=== PATIENT | male | born 1995 | race Caucasian/White ===

== ENCOUNTER 2025-03-28 20:11 | Emergency (ER) | payer OTHER, SELFPAY ==
[2025-03-28] VITALS (14 sets, daily range): BP systolic 112–135; BP diastolic 78–84; PULSE 62–77; TEMP 36.6; O2SAT 95–99; BMI 35.1
--- NOTE | 2025-03-28 20:47 | ECG_ITS ---
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 Measurements Intervals [place] Rate: 70 P: 45 CO: 166 QRS: 85 QRSD: 76 T: 55 QT: 356 QTc: 377 Interpretive Statements 1100 Sinus rhythm 1102 Sinus arrhythmia 9110 normal ECG No previous ECG available for comparison Electronically Signed On 03-29-2025 19:54:20 EDT by BALDOMERO TORRES M.D.
--- NOTE | 2025-03-28 20:49 | ED.GENADUL1 ---
HPI HPI - General Adult General Chief complaint: Dizziness Stated complaint: DIZZY, BLURRED VISION, MUSCLES FEEL TIGHT Time Seen by Provider: 03/28/25 20:13 Source: patient Mode of arrival: walk-in Limitations: no limitations History of Present Illness HPI narrative: Patient is a 29-year-old male that presents to the emergency department with complaints of 5 days of dizziness that is usually followed by headache and sometimes a few minutes of bilateral hand tingling. He has also been getting some intermittent calf cramping he notes that he recently started a job where the temperature is extremely high and he has been sweating like crazy. He has been drinking a lot of liquid IVs but states he still feels dehydrated. He notes that about a year ago he had similar symptoms and his potassium was low. He had to get it replaced in the emergency department. He does not have a PCP and did not follow-up after this and does not like to see doctors. He denies any trauma, medical history, or starting any new medications. He denies any chest pain, shortness of breath, or abdominal pain. Related Data Home Medications ?Medication ?Instructions ?Recorded ?Confirmed No Known Home Medications 03/28/25 03/28/25 Allergies Allergy/AdvReac Type Severity Reaction Status Date / Time No Known Drug Allergies Allergy Verified 03/28/25 20:25 Review of Systems ROS Status of ROS 10 or more systems reviewed and unremarkable except as noted in history and below Exam Narrative Exam Narrative: General: No distress, age-appropriate Skin: Warm, dry, no pallor. No rash. Head: Normocephalic, atraumatic. Neck: Supple, non-tender. Eye: Pupils are equal, round and EOMI. No scleral icterus. Ears, Nose, Mouth, and Throat: No nasal mucosal hypertrophy. Oral mucosa is moist, no posterior oropharynx erythema, uvula is mid-line Cardiovascular: Regular Rate and Rhythm without murmur, gallop or rub. Respiratory: No accessory muscle use or respiratory distress. Lungs are clear to auscultation, no wheezing, rales or rhonchi Chest Wall: no tenderness Back: No midline thoracic or lumbar vertebral tenderness. Musculoskeletal: Full ROM of all extremities, no calf or popliteal tenderness GI: Abdomen is soft, non-distended, non tender to palpation. No masses appreciated. No rebound, guarding, or rigidity noted. Neurological: A&O x4. No cranial nerve dysfunction observed. No truncal ataxia. Moves all extremities. Sensation intact. Psychiatric: Cooperative and interactive. Normal mood and affect. Constitutional Vital Signs, click to edit/add: Last Vital Signs Temp 97.8 F 03/28/25 20:23 Pulse 66 03/28/25 22:40 Resp 15 03/28/25 22:40 BP 112/78 03/28/25 22:30 Pulse Ox 99 03/28/25 22:40 Documenting provider has reviewed patient's vital signs: yes Course Vital Signs Vital signs: Vital Signs Temperature 97.8 F 03/28/25 20:23 Pulse Rate 71 03/28/25 20:23 Respiratory Rate 18 03/28/25 20:23 Blood Pressure 135/84 03/28/25 20:23 Pulse Oximetry 99 03/28/25 20:23 Temperature 97.8 F 03/28/25 20:23 Pulse Rate 66 03/28/25 22:40 Respiratory Rate 15 03/28/25 22:40 Blood Pressure 112/78 03/28/25 22:30 Pulse Oximetry 99 03/28/25 22:40 Medical Decision Making MDM Narrative Medical decision making narrative: This is a 29-year-old male that presented to the emergency department with about 5 days of intermittent dizziness, headache, episodes of bilateral hand tingling, and leg cramping after starting a new job the day prior to onset of symptoms. This job involves working in extreme temperatures where he does sweat a lot. He has been trying to drink electrolyte drinks but still feels he is dehydrated and cannot keep up . About a year ago he states he presented to the ER with similar symptoms and his potassium was low and he needed replacement. He does not have a PCP and does not follow with a doctor. On arrival patient is in no distress, appears comfortable on ED cart sitting up. His only complaint currently is mild headache. There are no neurological deficits on exam. He is GCS 15. Vitals are hemodynamically stable, patient is afebrile 97.8. O2 saturation is 99% on room air. IV was placed and 1 L normal saline ordered. CBC, BMP ordered. EKG on arrival was reviewed and noted to be in sinus rhythm, no ST elevation, no ischemic changes. Labs, CBC and BMP unremarkable. K is 4.0 At this time, patient appears to have mild dehydration and symptoms consistent with functional effects of prior or intermittent electrolyte disturbance, exacerbated by heat exposure and volume loss. Labs are reassuring with no acute pathology. Symptoms improved with IV fluids in ED. No acute intervention required. Patient updated with testing and lab results. Return precautions discussed and also placed in discharge instructions. Patient was discharged to home and I did discuss establishing care with a primary care physician for follow-up. Differential Diagnosis Differential Diagnosis: Electrolyte imbalance, arrhythmia, dehydration Lab Data Lab results reviewed: Yes I reviewed the patient's lab results Labs: Lab Results 03/28/25 Range/Units 21:03 WBC 11.0 (4.0-11.0) 10^3/uL RBC 5.50 (4.70-6.10) 10^6/uL Hgb 16.3 (14.0-18.0) g/dL Hct 47.9 (42.0-54.0) % MCV 87.1 (80.0-94.0) fL MCH 29.6 (25.9-34.0) pg MCHC 34.0 (29.9-35.2) g/dL RDW 13.2 (11.0-15.0) % Plt Count 220 (150-450) 10^3/uL MPV 11.0 (9.5-13.5) fL Neut % (Auto) 59.2 (43.0-75.0) % Lymph % (Auto) 27.9 (20.5-60.0) % Logan % (Auto) 8.5 (1.7-12.0) % Eos % (Auto) 3.5 (0.9-7.0) % Baso % (Auto) 0.6 (0.2-2.0) % Neut # (Auto) 6.5 (1.4-6.5) 10^3/uL Lymph # (Auto) 3.1 (1.2-3.8) 10^3/uL Logan # (Auto) 0.9 H (0.3-0.8) 10^3/uL Eos # (Auto) 0.4 (0.0-0.7) 10^3/uL Baso # (Auto) 0.1 (0.0-0.1) 10^3/uL Abs Immat Gran (auto) 0.03 (0.00-0.03) 10^3/uL Imm/Tot Granulo (auto) 0.3 (0.0-0.5) % Sodium 143 (136-145) mmol/L Potassium 4.0 (3.5-5.1) mmol/L Chloride 105 (98-107) mmol/L Carbon Dioxide 26.8 (21.0-32.0) mmol/L Anion Gap 15.2 BUN 17.0 (7.0-18.0) mg/dL Creatinine 0.92 (0.70-1.30) mg/dL Est GFR ( Amer) >60 (>=60 mL/min/1.73m^2) Est GFR (Non-Af Amer) >60 (>=60 mL/min/1.73m^2) BUN/Creatinine Ratio 18.5 Glucose 98 (74-106) mg/dL Calcium 9.6 (8.5-10.1) mg/dL ECG Data Attestation: ?I have reviewed the pertinent ECG results. Discharge Plan Discharge Chief Complaint: Dizziness Clinical Impression: Dizziness, Dehydration Patient Disposition: Home, Self-Care Time of Disposition Decision: 22:01 Condition: Good Mode of Transportation: Private Vehicle Prescriptions / Home Meds: No Action No Known Home Medications Print Language: Georgian Instructions: Dehydration (ED), Dizziness (ED) Additional Instructions: Return to the emergency department if you experience any of the following symptoms: - Chest pain, shortness of breath - Worsening dizziness, confusion, weakness - Persistent vomiting or inability to tolerate fluids - Severe muscle cramps or new numbness/tingling If you also experience any new or worsening symptoms return to the emergency department. Establish care with a primary care physician and follow-up for aftercare. Referrals: Physician,Non-Staff, MD [Primary Care Provider] - 1 week
[2025-03-28 21:12] LABS: Hematocrit 47.9 % (42.0-54.0); Hemoglobin 16.3 g/dL (14.0-18.0); Immature Granulocytes Abs Auto 0.03 10^3/uL (0.00-0.03); Immature Granulocytes Pct Auto 0.3 % (0.0-0.5); Lymphocytes Absolute Auto 3.1 10^3/uL (1.2-3.8); Mean Corpuscular HGB Conc 34.0 g/dL (29.9-35.2); Mean Corpuscular Hemoglobin 29.6 pg (25.9-34.0); Mean Corpuscular Volume 87.1 fL (80.0-94.0); Platelet Count 220 10^3/uL (150-450); Red Blood Count 5.50 10^6/uL (4.70-6.10); White Blood Count 11.0 10^3/uL (4.0-11.0)
[2025-03-28] MEDS: 0.9 % SODIUM CHLORIDE 1,000 ML 1000 ML IV (21:13)
[2025-03-28 21:24] LABS: Anion Gap 15.2; Blood Urea Nitrogen 17.0 mg/dL (7.0-18.0); Calcium 9.6 mg/dL (8.5-10.1); Carbon Dioxide 26.8 mmol/L (21.0-32.0); Chloride 105 mmol/L (98-107); Estimated GFR (African America >60 (>=60 mL/min/1.73m^2); Estimated GFR (Non-African Ame >60 (>=60 mL/min/1.73m^2); Glucose 98 mg/dL (74-106); Potassium 4.0 mmol/L (3.5-5.1); Sodium 143 mmol/L (136-145)
--- NOTE | 2025-03-28 22:55 | PC.NURSE ---
i gave this patient verbal and written discharge orders and this patient voices yes to understanding these. at time of discharge this patient voices no concerns, needs and shows no signs of distress
== END 2025-03-28 22:56 | disposition home or self-care (01) ==
PROVIDERS: Physician Assistant; Emergency Provider Emergency Medicine
DX: E86.0 Dehydration (principal); R42 Dizziness and giddiness
CPT/HCPCS: 36415; 80048; 81001; 85025; 93005; 99285

== ENCOUNTER 2025-06-12 21:23 | Emergency (ER) | payer OTHER, SELFPAY ==
[2025-06-12 21:49] VITALS: BP 122/73; PULSE 96; TEMP 36.7; O2SAT 100; BMI 35.2
--- OUTSIDE RECORDS SUMMARY | 2025-06-12 22:01 | XMS_ITS | Clinical Summary ---
Author Organization [facility] Address [address] [place] [address] Care Team Providers Care Veterinary Anatomist Name Role Phone Unavailable Primary Care Provider Unavailabl e Allergies Active AllergyReactionsCriticalityNoted DateCommentsPollen Manqgpk9605/02/2023 Medications MedicationSigDispense QuantityRefillsLast FilledStart DateEnd DateStatus ibuprofen 200 MG tablet Take by mouth.Active Active Problems No known active problems Family History Medical HistoryRelationNameCommentsHypertensionFatherHypertensionMaternal GrandfatherDiabetesMaternal GrandmotherRelationNameStatusCommentsFatherAlive Maternal GrandfatherAliveMaternal GrandmotherAlive Social History Tobacco UseTypesPacks/DayYears UsedDateSmoking Tobacco: Every DayCigarettes Smokeless Tobacco: Never Tobacco Cessation:Ready to Q uit: Not Asked; Counseling Given: Not Answered Alcohol UseStandard Drinks/WeekCommentsYes0 (1 standard drink = 0.6 oz pure alcohol)Sex and Gender InformationValueDate RecordedSex Assigned at BirthNot on fileLegal PmgZabi6209/11/2022 6:55 PM EDTGender IdentityNot on fileSexual OrientationNot on file Last Filed Vital Signs Vital SignReadingTime TakenCommentsBlood Pressure--Pulse--Zloqxpraiqe28.7 ??C (98 ??F)06/09/2023 8:47 AM ESTRespiratory Rate--Oxygen Saturation--Inhaled Oxygen Concentration--Twwbuj339 kg (244 lb)06/09/2023 8:47 AM TZILjpyyq817.8 cm (5' 10 )06/09/2023 8:47 AM ESTBody Mass Index35.01108/10/2022 8:47 AM EST Plan of Treatment Not on file Insurance * Guarantor: [id number] TypeRelation to PatientDate of BirthPhone Billing AddressWorkers JyplQgyukmyy[birth year][address] [place] [id number] [place] [address]
--- OUTSIDE RECORDS SUMMARY | 2025-06-12 22:01 | XMS_ITS | Clinical Summary ---
Author Organization [facility] Address [address], [address] [place] [address] Care Team Providers Care Executive Receptionist Name Role Phone Unavailable Primary Care Provider Unavailabl e Allergies No known active allergies Medications MedicationSigDispense QuantityRefillsLast FilledStart DateEnd DateStatus eslicarbazepine (APTIOM) 400 MG TABS tablet Take 400 mg by mouth dailyActive Social History Tobacco UseTypesPacks/DayYears UsedDateSmoking Tobacco: Some DaysCigarettes Alcohol UseStandard Drinks/WeekCommentsNot Currently0 (1 standard drink = 0.6 oz pure alcohol)AUDIT-CAnswerDate RecordedQ1: How often do you have a drink containing alcohol?Never05/18/2024Q2: How many drinks containing alcohol do you have on a typical day when you are drinking?Patient does not drink05/18/2024Q3: How often do you have six or more drinks on one occasion?Never05/18/2024 Interpersonal Safety Domain Source: IP Abuse ScreeningAnswerDate Recorded Physical rmphuMxngfk52/19/2024Verbal ayfzxIdzhdk03/19/2024Emotional abuseDenies 05/18/2024Financial vysmhGmcywp28/19/2024Sexual lfffkWqfgjk59/19/2024Sex and Gender InformationValueDate RecordedSex Assigned at BirthNot on fileLegal Sex Male08/11/2012 6:00 AM ESTGender IdentityNot on fileSexual OrientationNot on file Last Filed Vital Signs Vital SignReadingTime TakenCommentsBlood Xnwcnyea246/7905/18/2024 4:18 PM EST Rktgo044805/18/2024 4:18 PM KUISyjxijyzdyf44.7 ??C (98 ??F)05/18/2024 4:18 PM EST Respiratory Psyc343407/18/2023 4:18 PM ESTOxygen Yzssoxljdn52%05/18/2024 4:18 PM ESTInhaled Oxygen Concentration--Xpgcxo181.5 kg (237 lb)05/18/2024 4:18 PM EST Aebaiq142.3 cm (5' 11 )05/18/2024 4:18 PM ESTBody Mass Index33.0505/18/2024 4:18 PM EST Plan of Treatment Health MaintenanceDue DateLast DoneCommentsDepression Efhsfr3708/26/2006Varicella vaccine (1 of 2 - 13+ 2-dose series)2007HIV fcovuq6308/26/2009Hepatitis C zoyjjq6408/26/2012Hepatitis B vaccine (1 of 3 - 19+ 3-dose series)2013 Pneumococcal 0-49 years Vaccine (1 of 2 - PCV)2013Flu vaccine (#1) 01/28/2025OVID-19 Vaccine (1 - season)2025DTaP/Tdap/Td vaccine (4 - Td or Tdap)/, 09/05/2014, 11/08/2013HPV vaccine (No Doses Required)CompletedHepatitis A vaccineAged OutNo longer eligible based on patient's age to complete this topicHib vaccineAged OutNo longer eligible based on patient's age to complete this topicMeningococcal (ACWY) vaccineAged OutNo longer eligible based on patient's age to complete this topicMeningococcal B vaccineAged OutNo longer eligible based on patient's age to complete this topic Polio vaccineAged OutNo longer eligible based on patient's age to complete this topic
--- NOTE | 2025-06-12 22:04 | XR_ITS ---
[place] [id number] Patient Name: ENID WINSLOW MRN: [id number] date: 1995 Sex: M Assigned Patient Location: ED.MAIN Current Patient Location: Accession/Order Number: [id number] Exam Date: 06/12/2025 22:50 Report Date: 06/13/2025 09:38 At the request of: ALLISON PALAFOX DO Procedure: XR chest 1V PORTABLE AP ERECT CHEST 2235 hours CLINICAL HISTORY: Epigastric pain and vomiting COMPARISON: None There is still slight elevation of the right hemidiaphragm. The heart is within normal limits. There is no vascular congestion. The lungs, as visualized, are clear. There is no effusion or pneumothorax. The osseous structures are intact. XR/XR chest 1V IMPRESSION: NO ACUTE FINDINGS Impression dictated by: Judie Lizarraga M.D. 06/13/2025 9:38 AM Dictation Location: [place] [address] Electronically authenticated by: [id number] Y Date: 06/13/2025 09:38
--- NOTE | 2025-06-12 22:09 | ED.GENADUL1 ---
HPI HPI - General Adult General Chief complaint: Abdominal Pain Stated complaint: Vomiting Blood Time Seen by Provider: 06/12/25 21:24 Source: patient Mode of arrival: walk-in Limitations: no limitations History of Present Illness HPI narrative: Patient is a 29-year-old male presenting to the emergency department for evaluation of hematemesis. The patient states that he had 1 episode of vomiting bright red blood. There is blood in the emesis basin next to him which is about 5 cc in total. Patient states that over the last few days he has been having intermittent episodes of epigastric pain. He states it is sharp in nature and feels like someone is stabbing him. He states he drinks alcohol 2-3 times a week, had few shots of fireball liquor earlier tonight. He smokes vapes, but no cigarette use. He denies any chronic medical conditions such as asthma, diabetes, peptic ulcer disease/gastritis. Other than pain in the upper part of his abdomen, he is asymptomatic without chest pain, shortness of breath, nausea, lightheadedness, dizziness, or palpitations. Related Data Previous Rx's ?Medication ?Instructions ?Recorded omeprazole 40 mg capsule,delayed 40 mg PO DAILY 4 weeks #28 caps 06/12/25 release Allergies Allergy/AdvReac Type Severity Reaction Status Date / Time No Known Drug Allergies Allergy Verified 06/12/25 21:53 Review of Systems ROS Status of ROS 10 or more systems reviewed and unremarkable except as noted in history and below PFSH PFSH Social History Little interest or pleasure in doing things: not at all Feeling down, depressed, or hopeless: not at all Exam Narrative Exam Narrative: CONSTITUTIONAL: Well-appearing, answering questions and following commands appropriately SKIN: Was warm and dry. EYES: Sclerae white. No conjunctival pallor. EARS, NOSE, THROAT: Moist oral mucosa. RESPIRATORY: Clear to auscultation bilaterally, no wheezes, crackles, or stridor, no use of accessory muscles CARDIOVASCULAR: Normal rate and regular rhythm. There is no S3, S4, murmur, rub. GASTROINTESTINAL: There is mild tenderness to palpation in the epigastrium. No rebound tenderness or guarding. MUSCULOSKELETAL: No peripheral edema. NEUROLOGIC: Patient is awake and alert. Facies were symmetrical. Constitutional Vital Signs, click to edit/add: Last Vital Signs Temp 98.1 F 06/12/25 21:49 Pulse 96 H 12/14/25 21:49 Resp 17 06/12/25 21:49 BP 122/73 06/12/25 21:49 Pulse Ox 100 06/12/25 21:49 O2 Del Method Room Air 06/12/25 21:49 Course Vital Signs Vital signs: Vital Signs Temperature 98.1 F 06/12/25 21:49 Pulse Rate 96 H 06/12/25 21:49 Respiratory Rate 17 06/12/25 21:49 Blood Pressure 122/73 06/12/25 21:49 Pulse Oximetry 100 06/12/25 21:49 Oxygen Delivery Method Room Air 06/12/25 21:49 Temperature 98.1 F 06/12/25 21:49 Pulse Rate 96 H 06/12/25 21:49 Respiratory Rate 17 06/12/25 21:49 Blood Pressure 122/73 06/12/25 21:49 Pulse Oximetry 100 06/12/25 21:49 Oxygen Delivery Method Room Air 06/12/25 21:49 Medical Decision Making MDM Narrative Medical decision making narrative: Patient is a 29-year-old male presenting to the emergency department for evaluation of 1 episode of hematemesis and 2 to 3-day history of epigastric pain. His vital signs on arrival are within normal limits. He is afebrile and hemodynamically stable. Examination was notable for mild tenderness palpation epigastrium without peritoneal signs. My clinical impression is that the patient has been experiencing symptoms of gastritis/peptic ulcer disease. The gastric irritation likely caused a small amount of bleeding. He is hemodynamically stable without active hematemesis or signs/symptoms of blood loss anemia. No peritoneal signs to suggest perforated ulcer. IV was established and laboratory studies obtained to rule out significant anemia. He was given IV Protonix and oral GI cocktail for symptomatic treatment. Laboratory studies were unremarkable. No significant electrolyte or metabolic derangement. No evidence of acute kidney injury. No anemia, leukocytosis, or thrombocytopenia. No transaminitis or hyperbilirubinemia. Upright chest x-ray independent reviewed by myself demonstrated no free air under the diaphragm. No pneumomediastinum. On reevaluation, patient is laying comfortably in the stretcher. He is currently asymptomatic and feels improved after medications. He has had no further episodes of hematemesis while here in the ED. He remains hemodynamically stable with normal vital signs. I do believe the patient is stable for discharge. Patient's presentation is most likely consistent with gastritis/PUD with resulting hematemesis. They were given a referral for a local family physician instructed to follow up within 1 week. Return precautions were given including any new or worsening symptoms, including persistent hematemesis, lightheadedness/dizziness/shortness of breath, or significant abdominal pain. They were given a prescription for omeprazole 40 mg daily x 4 weeks. Patient understands and agrees to the plan. FINAL IMPRESSION: #Acute hematemesis #Acute epigastric pain, likely secondary to gastritis, PUD DISPOSITION: Discharged home CONDITION: Good Lab Data Lab results reviewed: Yes I reviewed the patient's lab results Labs: Lab Results 06/12/25 Range/Units 22:36 WBC 8.7 (4.0-11.0) 10^3/uL RBC 5.39 (4.70-6.10) 10^6/uL Hgb 16.0 (14.0-18.0) g/dL Hct 46.0 (42.0-54.0) % MCV 85.3 (80.0-94.0) fL MCH 29.7 (25.9-34.0) pg MCHC 34.8 (29.9-35.2) g/dL RDW 12.6 (11.0-15.0) % Plt Count 223 (150-450) 10^3/uL MPV 10.2 (9.5-13.5) fL Neut % (Auto) 62.1 (43.0-75.0) % Lymph % (Auto) 27.9 (20.5-60.0) % Clare % (Auto) 7.8 (1.7-12.0) % Eos % (Auto) 1.7 (0.9-7.0) % Baso % (Auto) 0.3 (0.2-2.0) % Neut # (Auto) 5.4 (1.4-6.5) 10^3/uL Lymph # (Auto) 2.4 (1.2-3.8) 10^3/uL Clare # (Auto) 0.7 (0.3-0.8) 10^3/uL Eos # (Auto) 0.2 (0.0-0.7) 10^3/uL Baso # (Auto) 0.0 (0.0-0.1) 10^3/uL Abs Immat Gran (auto) 0.02 (0.00-0.03) 10^3/uL Imm/Tot Granulo (auto) 0.2 (0.0-0.5) % Sodium 143 (136-145) mmol/L Potassium 3.2 L (3.5-5.1) mmol/L Chloride 105 (98-107) mmol/L Carbon Dioxide 28.3 (21.0-32.0) mmol/L Anion Gap 12.9 BUN 17.0 (7.0-18.0) mg/dL Creatinine 0.83 (0.70-1.30) mg/dL Est GFR ( Amer) >60 (>=60 mL/min/1.73m^2) Est GFR (Non-Af Amer) >60 (>=60 mL/min/1.73m^2) BUN/Creatinine Ratio 20.5 Glucose 123 H (74-106) mg/dL Calcium 9.1 (8.5-10.1) mg/dL Total Bilirubin 0.4 (0.2-1.0) mg/dL AST 25 (15-37) U/L ALT 63 (16-63) U/L Alkaline Phosphatase 88 (46-116) U/L Total Protein 7.6 (6.4-8.2) g/dL Albumin 3.6 (3.4-5.0) g/dL Globulin 4.0 g/dL Albumin/Globulin Ratio 0.9 Lipase 34.0 (16.0-77.0) U/L Imaging Data Chest x-ray: Attestation: I personally reviewed and interpreted this imaging study as follows: Discharge Plan Discharge Chief Complaint: Abdominal Pain Clinical Impression: Hematemesis Patient Disposition: Home, Self-Care Time of Disposition Decision: 23:00 Condition: Good Mode of Transportation: Private Vehicle Prescriptions / Home Meds: New omeprazole 40 mg capsule,delayed release(DR/EC) 40 mg PO DAILY 28 Days Qty: 28 0RF Print Language: Spanish Instructions: Gastritis (ED), Hematemesis (ED) Referrals: Bertha Dumont DO [Physician, Hospitalist] - 1 week Physician,Non-Staff, MD [Primary Care Provider] - 1 week
[2025-06-12 22:41] LABS: Hematocrit 46.0 % (42.0-54.0); Hemoglobin 16.0 g/dL (14.0-18.0); Immature Granulocytes Abs Auto 0.02 10^3/uL (0.00-0.03); Immature Granulocytes Pct Auto 0.2 % (0.0-0.5); Lymphocytes Absolute Auto 2.4 10^3/uL (1.2-3.8); Mean Corpuscular HGB Conc 34.8 g/dL (29.9-35.2); Mean Corpuscular Hemoglobin 29.7 pg (25.9-34.0); Mean Corpuscular Volume 85.3 fL (80.0-94.0); Platelet Count 223 10^3/uL (150-450); Red Blood Count 5.39 10^6/uL (4.70-6.10); White Blood Count 8.7 10^3/uL (4.0-11.0)
[2025-06-12 23:00] LABS: Alanine Aminotransferase 63 U/L (16-63); Albumin Globulin Ratio 0.9; Albumin Level 3.6 g/dL (3.4-5.0); Alkaline Phosphatase 88 U/L (46-116); Anion Gap 12.9; Aspartate Amino Transferase 25 U/L (15-37); Blood Urea Nitrogen 17.0 mg/dL (7.0-18.0); Calcium 9.1 mg/dL (8.5-10.1); Carbon Dioxide 28.3 mmol/L (21.0-32.0); Chloride 105 mmol/L (98-107); Estimated GFR (African America >60 (>=60 mL/min/1.73m^2); Estimated GFR (Non-African Ame >60 (>=60 mL/min/1.73m^2); Globulin 4.0 g/dL; Glucose 123 mg/dL (74-106); Lipase 34.0 U/L (16.0-77.0); Potassium 3.2 mmol/L (3.5-5.1); Sodium 143 mmol/L (136-145); Total Protein 7.6 g/dL (6.4-8.2)
[2025-06-12] MEDS: PANTOPRAZOLE SODIUM 40 MG VIAL IV (23:14)
[2025-06-12 23:22] VITALS: BP 120/73; PULSE 88; O2SAT 98
== END 2025-06-12 23:22 | disposition home or self-care (01) ==
PROVIDERS: Emergency Provider Student in an Organized Health Care Education/Training Program
DX: K92.0 Hematemesis (principal); F17.290 Nicotine dependence, other tobacco product, uncomplicated
CPT/HCPCS: 36415; 71045; 80053; 83690; 85025; 96374; 99284